=== PATIENT | male | born 1950 | race Caucasian/White ===

== ENCOUNTER → 2023-04-21 12:54 | Outpatient (REF) | payer MEDICARE, BC, SELFPAY ==
[2023-04-21 13:28] LABS: % Basophils 0.3 % (0-2); % Eosinophils 1.9 % (0-6); % Immature Granulocytes 0.8 % (0-0.5); % Lymphocytes 24.5 % (20.5-51.1); % Neutrophils 64.5 % (42.2-75.2); Absolute Eosinophils 0.1 10^3/uL (0-0.7); Absolute Immature Granulocytes 0.1 10^3/uL (0-0.05); Absolute Lymphocytes 1.8 10^3/uL (1.2-3.4); Absolute Monocytes 0.6 10^3/uL (0.1-0.6); Absolute Neutrophils 4.7 10^3/uL (1.4-6.5); Hematocrit 33.4 % (39.0-52.0); Hemoglobin 11.6 g/dL (13.0-18.0); Mean Corp Hgb Conc. 34.7 g/dL (33.0-37.0); Mean Corpuscular Hgb 36.3 pg (27.0-31.0); Mean Corpuscular Volume 104.4 fL (80.0-94.0); Mean Platelet Volume 10.8 fL (7.4-10.4); Nucleated Red Blood Cells % 0 % (-); Platelet Count 217 10^3/uL (130-400); Red Cell Dist. Width 18.6 % (11.5-14.5); White Blood Cell Count 7.3 10^3/uL (4.8-10.8)
[2023-04-21 13:49] LABS: ALT (SGPT) 28 U/L (0-50); AST (SGOT) 31 U/L (17-59); Albumin 4.6 g/dl (3.5-5.0); Alkaline Phosphatase 84 U/L (38-126); Blood Urea Nitrogen 23 mg/dl (9-20); Calcium 9.3 mg/dl (8.4-10.2); Carbon Dioxide 28 mmol/L (22-30); Chloride 108 mmol/L (98-107); Glucose 100 mg/dl (70-99); INR 1.23; Magnesium 2.2 mg/dl (1.6-2.3); PT 15.3 Sec (11.4-14.6); Potassium 4.7 mmol/L (3.5-5.1); Sodium 140 mmol/L (135-145); Total Bilirubin 0.7 mg/dl (0.2-1.3); Total Protein 7.3 g/dl (6.3-8.2); eGFR > 60.00
== END ==
LOC: SDSPAT 12:54
PROVIDERS: ATTENDING PHYSICIAN Internal Medicine Cardiovascular Disease; FAMILY PHYSICIAN Family Medicine; OTHER PHYSICIAN Internal Medicine Cardiovascular Disease
DX: Z01.818 Encounter for other preprocedural examination (principal); I48.0 Paroxysmal atrial fibrillation
CPT/HCPCS: 36415; 75572; 80053; 83735; 85025; 85610; 86850; 86900; 86901; Q9967

== ENCOUNTER 2023-05-02 05:58 | Day surgery (SDC) | payer MEDICARE, BC, SELFPAY ==
[2023-04-21 13:02] VITALS: BMI 29.2
[2023-05-02] VITALS (14 sets, daily range): BP systolic 131–154; BP diastolic 61–87; BMI 29.2
[2023-05-02 09:00] LABS: ACT-LR - POC 248 Seconds (116-155)
[2023-05-02 09:18] LABS: ACT-LR - POC 295 Seconds (116-155)
[2023-05-02 09:40] LABS: ACT-LR - POC 284 Seconds (116-155)
[2023-05-02 09:59] LABS: ACT-LR - POC 331 Seconds (116-155)
[2023-05-02 10:14] LABS: ACT-LR - POC 358 Seconds (116-155)
[2023-05-02 10:20] LABS: ACT-LR - POC 210 Seconds (116-155)
--- NOTE | 2023-05-02 11:17 | ITS.CL.ABL ---
Shift Production Associate - Ablation
Ablation
Procedure Report:
Primary Contracting Engineer: David Jimenez MD
Procedure Date: 05/02/2023
Patient History:
Pleasant 73-year-old male with a past medical history significant for BREANNE, hyperlipidemia, gout, prior alcohol use, and paroxysmal atrial fibrillation (symptomatic).
Indication:
Symptomatic paroxysmal atrial fibrillation
Early recurrence after cardioversion 08/2022
Arrhythmia Specific History:
Prior Medical Therapies for Rate and Rhythm Control:
X Beta-zaheer
[ ] Calcium channel-zaheer
[ ] Amiodarone
[ ] Dronederone
[ ] Sotalol
[ ] Flecainide
[ ] Dofetilide
[ ] Options limited by bradycardia
[ ] Options limited by comorbid renal disease
Prior Procedural Therapies for AF/AFL:
X Cardioversion
[ ] Pulmonary Vein Isolation
[ ] Posterior Wall Isolation
[ ] Additional lines (Specify)
[ ] Surgical Salter-MAZE or PVI (Specify)
Procedure Performed:
X AF ablation procedure (96680) -- includes LA/CS pacing, trans-septal, 3D mapping, + ICE
[ ] +IV drug (08006)
[ ] +Other Arrhythmia (24424)
[ ] +Other AF Line/ablation (84687)
Risks and expected recovery has been explained in detail. Alternative options have been explored, and in a shared-decision making fashion we have decided that this was the most appropriate procedure.
Method
NPO status confirmed. Grounding pad applied. Defibrillator pads applied. Continuous surface ECG, pulse oximetry, and blood pressure were monitored. Procedure was performed under general anesthesia, with anesthesia services.
Both groins were clipped, prepped with Chloraprep, and draped in sterile fashion. Time out was called. Local anesthesia administered with bupivacaine. The right and left femoral veins were accessed for catheter placement, using ultrasound guidance,
micro-puncture needle/wire, and modified seldinger technique. 3 sheaths were placed. The following catheters were used:
[ ] Tacticath SE (D/F Curve) ablation catheter
X Viewflex 9Fr ICE catheter
X Inquiry decapolar 6Fr diagnostic catheter
[ ] CRD Hex 6Fr
X Arctic Front Advance Cryoballoon (28mm)
X Achieve Advance mapping catheter (15mm)
[ ] Acuson AcuNav 8 Fr ICE catheter
[ ]Other: [ ]
Intracardiac ultrasound (ICE) was carefully advanced into the right atrium to guide sheath placement over a J-wire, catheter placement, guide trans-septal puncture, identify potential complications, identify anatomic structures and ensure proper
contact between ablation catheter and tissue.
Heparin was given prior to trans-septal puncture. Heparin was given to achieve and maintain a target ACT of 300-400 seconds.
Trans-septal access was performed under ICE guidance. The trans-septal puncture was performed with a SafeSept wire through a Brockenbrough needle assembly. The wire was visualized as it entered the LSPV. The Brockenbrough needle assembly, SafeSept
wire and sheath dilator were removed under negative pressure. The Protrack pigtail wire was advanced through the sheath into the left atrium with position confirmed on ICE and fluoroscopy. The fixed curve long sheath was exchanged from the steerable
sheath over the Protrack wire and was advanced into the LA and positioned at the mitral annulus.
ICE and 3D mapping was performed to identify relevant cardiac structures. A careful 3D map was created to assess for regions of low-voltage and abnormal electrogram signals. Additional mapping was performed as outlined below. See synopsis for
details.
Cryoballoon ablation was performed using freeze/thaw/freeze at 2-4 minute intervals. Ablation targets included Cryoballoon temperatures of -30 degrees @ 30 seconds with goal temp typically between -40 and -50 degrees Celsius with time to effect when
measurable recorded to guide duration of application and need for repeat ablation in each vein. Esophageal temperature monitored throughout intervention. Phrenic nerve pacing performed during cryoapplication in the right pulmonary veins to monitor
for any evidence of PNI requiring application termination. See synopsis and procedure log for details.
Catheter and sheath were removed from the left atrium and post-ablation intracardiac echo evaluation was consistent with pre-ablation with no changes and no pericardial effusion and there is no left atrial thrombus or left ventricle thrombus seen.
Electrophysiology study was performed. Hemostasis was obtained with figure of 8 stitch for each groin with manual pressure. Protamine was used for reversal.
Estimated Blood Loss
5-10 mL
Complications
None
Procedure Synopsis:
The patient entered the room in sinus rhythm. Three-dimensional mapping with EnSite system was performed with reconstruction of left atrium utilizing Achieve catheter. Intracardiac ultrasound and EnSite was used for guidance of ablation and
placement of the Cryoballoon. PV seal was confirmed with pressure waveform and ICE. Using the Achieve catheter, it was confirmed that pulmonary veins were active. All pulmonary veins were isolated successfully using Cryoballoon ablation using
freeze/thaw/freeze cycles at 2-4-minute intervals, with good [id number] of isolation. During the right-sided PV ablation, phrenic nerve pacing was performed to assess the phrenic nerve strength and the phrenic nerve was intact throughout the
right-sided ablation. Pre- and post-pulmonary vein recording and pacing from the Achieve catheter was utilized to ensure complete pulmonary vein isolation. LA voltage map created at procedure conclusion confirming WACA of bilateral PVs.
Fluoroscopy: 11.8 minutes; 39.61 mGy; DAP 5.22
Contrast used: 0 cc
Baseline Intervals:
Rhythm: SR
NC: 239 ms
QRS: 95 ms
QT: 355 ms
QTc: 395 ms
A-A: 806 ms
R-R: 806 ms
Post-Procedure Intervals:
NC: 239 ms
QRS: 90 ms
QT: 414 ms
QTc: 464 ms
A-A: 796 ms
R-R: 796 ms
AVWB: 390 ms
AVNERP: 600/230 ms (no dual mitchell physiology)
AVERP: 600/210 ms
Recommendations
- Bedrest with straight-leg precautions as ordered
- Anticipate same day discharge if patient meeting clinical metrics
- Resume home medications as indicated
- Ok to resume anticoagulation tonight if patient and groin sites stable
- PPI daily for 30 days
- Plan for follow-up in office in 4-6 weeks
Chintan Mendez DO
Clinical Cardiac Heritage Consultant
cc: David Jimenez MD
[2023-05-02] MEDS: MAALOX 30 ML PO (11:32)
[2023-05-02] MEDS: ANESTHETIC LOZENGE 1 LOZENGE PO (11:32)
[2023-05-02] MEDS: TYLENOL 650 MG PO (12:05)
--- NOTE | 2023-05-02 13:22 | W.PN.UPDATE ---
Update Note
Progress Note Update
73 yo WM s/p PVI (same day). He feels good, mild chest burning, no sob, kelley diet, amb w/o dizziness, voiding, R fem site with some mild oozing initially, soft, no HT, L fem site c/d/i. EKG SR 1deg AVB. He will continue OAC Eliquis dose at 4pm at
home. He will continue metoprolol and will add PPI for 30 days. ACtivity restrictions reviewed. He will f/u Dr. Jimenez in 1 mo. He is for d/c home after 2pm.
== END 2023-05-02 15:20 | disposition home or self-care (01) ==
LOC: CATH 05:58
PROVIDERS: ATTENDING PHYSICIAN Internal Medicine Cardiovascular Disease; FAMILY PHYSICIAN Family Medicine; OTHER PHYSICIAN Internal Medicine Cardiovascular Disease
DX: I48.0 Paroxysmal atrial fibrillation (principal); E78.5 Hyperlipidemia, unspecified; G47.33 Obstructive sleep apnea (adult) (pediatric); M10.9 Gout, unspecified; Z79.01 Long term (current) use of anticoagulants; I10 Essential (primary) hypertension
CPT/HCPCS: C1766; C1894; C1893; C1892; C1759; 76937; 85347; 86900; 86901; 93005; 93656; C1760

== ENCOUNTER 2023-05-02 19:42 | Emergency (ER) | payer MEDICARE, BC, SELFPAY ==
[2023-05-02] VITALS (13 sets, daily range): BP systolic 101–124; BP diastolic 58–82; BMI 30.3
--- NOTE | 2023-05-02 20:07 | ED.GENMED ---
History of Present Illness
General
Chief Complaint: Chest Pain
Source: patient, records, spouse and family (Daughter)
Exam Limitations: none
Time Seen by Provider: 05/02/23 19:55
Nursing documentation reviewed up to this point in time: agreed with
Travel History
Have you had any contact with someone who has COVID-19?: No
Do you have any symptoms of coronavirus? Fever > 100 degrees, chills, cough, shortness of breath, sore throat, loss of taste or smell, muscle aches, or headache?: No
History of Present Illness
History of Present Illness:
73-year-old male with a past medical history of atrial fibrillation, hyperlipidemia who presents to the emergency department for evaluation of palpitations. Patient has a known history of A-fib and has been on Eliquis and is compliant. He follows
with Dr. Presley for cardiology; he notably had cardiac ablation today for his A-fib with Dr. James here at [place]. Patient reports that he was feeling well after the procedure, tonight was eating dinner around 6 PM and noticed onset of
palpitations consistent with prior A-fib symptoms. He says that he took a dose of metoprolol at around 6:15 PM and laid down to rest but palpitations were not improving and when he checked his heart rate it was severely elevated. Came to the
emergency room for assessment. He denies any chest pain (triage note reports chest pain but he describes more palpitation). Denies any shortness of breath. He denies any dizziness. He reports compliance with his Eliquis including dose this
evening.
Review of Systems
Review of Systems
All Other Systems: ROS reviewed and negative except as documented in HPI and ROS
Constitutional: Denies fever or chills
EENT: Denies sore throat
Respiratory: Denies cough or trouble breathing
Cardiac: Reports palpitations; Denies chest pain or diaphoresis
ABD/GI: Denies abdominal pain, nausea or vomiting
: Denies flank pain
Musculoskeletal: Denies neck pain or back pain
Neurological: Denies dizzy, headache, weakness or numbness
Phy Exam
Physical Exam
Physical Exam:
General: Awake, alert, oriented x3; no acute distress
Head: Normocephalic, atraumatic
Eyes: Conjunctiva normal, sclera
Throat: Airway intact, handling secretions
Neck: Trachea midline, supple without meningismus
Lungs: Clear to auscultation bilaterally, no wheezing, rales, rhonchi
Heart: Tachycardia with irregularly irregular rhythm, no murmurs, gallops, or rubs
Abd: Soft, non distended, nontender
Neuro: Cranial nerves grossly intact, speech fluid
Skin: no rash
Extremities: No edema in extremities, equal pulses in all extremities
Scores
Heart Failure Risk
Heart Failure Risk Score: Not Applicable
Heart Score for Chest Pain Patients
STEMI patient?: Not applicable
Withdrawal Assessment of Alcohol
Withdrawal Assessment Completed?: Not applicable
Course
Orders/Labs/Results
Orders:
Orders
05/02/23 19:43
EKG [Electrocardiogram (*1)] Urgent
Reason for Study: Chest Pain
05/02/23 19:44
EKG- Treatment ONCE
05/02/23 20:05
Complete Blood Count/With Diff Urgent
Comprehensive Metabolic Panel Urgent
Magnesium Urgent
Vital Signs
Initial and Last Documented VS:
Initial Vital Signs
Pulse Resp Pulse Ox
125 15 98
05/02/23 19:45 05/02/23 19:45 05/02/23 19:45
Last Documented Vital Signs
Pulse Resp Pulse Ox
125 15 98
05/02/23 19:45 05/02/23 19:45 05/02/23 19:45
MDM/Problems Addressed
Differential Diagnosis Includes:
Symptomatic A-fib
MDM/Problems Addressed:
73-year-old male presents for evaluation of palpitations consistent with prior A-fib symptoms�he is status postcardiac ablation earlier today with Dr. James. He is on Eliquis and compliant. EKG on arrival shows A-fib with RVR. Mildly
hypertensive but stable blood pressure. Vital signs otherwise normal. Physical exam as above. Plan to place an IV check labs including CBC and a CMP, magnesium level. Case discussed with cardiology, patient would be a reasonable candidate for
elective ED cardioversion--discussed with patient and he is willing to undergo procedure. Will plan for ED cardioversion and reassess.
Chronic conditions affecting care:
Atrial fibrillation
Acute Exacerbation and/or Progression of Chronic Illness:
Acutely hypertensive
Acute Exacerbation and/or Progression of Chronic Illness: HTN
*Pulse Oximetry
Patient hypoxic: no
*EKG
Interpreted by ED Provider?: Yes
Comparison EKG: changes noted (A-fib/flutter)
Heart Rate: 127
Rate: tachycardiac
Rhythm: a-fib
[place]: normal axis
Interval: normal interval
QRS Pattern: normal QRS
Ischemia: no ischemia
*Critical Care Note
Total Time (30-74mins, 75-104mins- exclusive of procedures): 30
comment:
Critical care statement: A total of 30 minutes of critical care time was provided for this patient. This includes management of unstable vital signs, evaluation of the patient at bedside, frequent reassessment, discussion with
consultants/hospitalist, and review of pertinent medical records. This time was separate from time utilized to perform any aforementioned documented procedures
Data Reviewed
Review of Other/Old Records Reveals: Records and Operative Reports
Source: patient, records and family
Patient Management
Discussion with other providers: Data Management Manager (Discussed with cardiology)
ED Attending Note
-
Portions of this chart may have been created with voice recognition software.� Occasional wrong word or��sound alike� substitutions may have occurred due to the inherent limitations of voice recognition software.
Discharge Plan
Departure
Prescriptions:
No Action
allopurinol 100 mg Tablet
100 mg PO DAILY
[id number] Tablet
1 tab PO DAILY
coenzyme Q10 [CoQ-10] 100 mg Capsule
200 mg PO DAILY
rosuvastatin 5 mg Tablet
5 mg PO QPM
metoprolol tartrate 25 mg Tablet
25 mg PO TID
Eliquis 5 mg Tablet
5 mg PO BID
pantoprazole [Protonix] 40 mg tablet,delayed release (DR/EC)
40 mg PO DAILY Qty: 30 0RF
Interventions
Interventions:
*Risk Screen - Suicide Last Done: 05/02/23 19:45
*General Assessment Last Done: 05/02/23 19:54
*Neglect/Abuse Screening Last Done: 05/02/23 19:45
ED- Fall Risk Assessment Last Done: 05/02/23 19:54
*ED COVID-19 Vaccine History Last Done: 05/02/23 19:45
ED- Cardiac Assessment Last Done: 05/02/23 19:54
[2023-05-02 20:41] LABS: % Basophils 0.1 % (0-2); % Immature Granulocytes 0.8 % (0-0.5); % Lymphocytes 8.6 % (20.5-51.1); % Monocytes 5.5 % (1.7-9.3); Absolute Immature Granulocytes 0.1 10^3/uL (0-0.05); Absolute Lymphocytes 0.9 10^3/uL (1.2-3.4); Absolute Monocytes 0.6 10^3/uL (0.1-0.6); Absolute Neutrophils 8.7 10^3/uL (1.4-6.5); Hematocrit 31.3 % (39.0-52.0); Hemoglobin 11.2 g/dL (13.0-18.0); Mean Corp Hgb Conc. 35.8 g/dL (33.0-37.0); Mean Corpuscular Hgb 36.5 pg (27.0-31.0); Mean Platelet Volume 10.8 fL (7.4-10.4); Nucleated Red Blood Cells % 0 % (-); Platelet Count 232 10^3/uL (130-400); Red Blood Cell Count 3.07 10^6/uL (4.70-6.10); Red Cell Dist. Width 18.9 % (11.5-14.5); White Blood Cell Count 10.3 10^3/uL (4.8-10.8)
[2023-05-02 20:58] LABS: ALT (SGPT) 28 U/L (0-50); AST (SGOT) 62 U/L (17-59); Albumin 4.4 g/dl (3.5-5.0); Alkaline Phosphatase 69 U/L (38-126); Blood Urea Nitrogen 20 mg/dl (9-20); Calcium 9.1 mg/dl (8.4-10.2); Carbon Dioxide 25 mmol/L (22-30); Chloride 99 mmol/L (98-107); Estimated Creatinine Clearance 78 ml/min; Glucose 147 mg/dl (70-99); Magnesium 1.8 mg/dl (1.6-2.3); Potassium 4.7 mmol/L (3.5-5.1); Sodium 134 mmol/L (135-145); eGFR > 60.00
== END 2023-05-02 21:51 | disposition home or self-care (01) ==
LOC: EMR 19:42
PROVIDERS: EMERGENCY PHYSICIAN Emergency Medicine; FAMILY PHYSICIAN Family Medicine
DX: I48.91 Unspecified atrial fibrillation (principal); E78.5 Hyperlipidemia, unspecified; I10 Essential (primary) hypertension; Z98.890 Other specified postprocedural states; Z79.01 Long term (current) use of anticoagulants
CPT/HCPCS: 99291; 92960; 99152; 80053; 83735; 85025; 86900; 86901; 93005